=== PATIENT | female | born 1970 | race Caucasian/White ===

== ENCOUNTER 2021-06-04 10:21 | Emergency (ER) | payer OTHER ==
[2021-06-04 10:55] LABS: BASOPHIL 0.3 % (0-2); EOSINOPHIL 2.5 % (0-5); HCT 40.8 % (37.0-47.0); HGB 13.1 g/dl (12.5-16.0); LYMPHOCYTE 21.6 % (15-48); MCH 28.4 pg (25.0-31.0); MCHC 32.1 g/dL (32.0-36.0); MCV 88.5 fL (78.0-100.0); MONOCYTE 7.5 % (0-12); MPV 11.1 fL (6.0-9.5); NEUTROPHIL 67.8 % (41-80); NRBC 0; PLT 213 K/uL (150-400); RBC 4.61 M/uL (4.20-5.40); RDW 12.6 % (11.5-14.0); WBC 6.9 K/uL (4.0-10.5)
[2021-06-04 10:57] LABS: BILIRUBIN NEGATIVE (NEGATIVE); BLOOD NEGATIVE Ery/uL (NEGATIVE); CLARITY CLEAR (CLEAR); COLOR YELLOW (YELLOW); GLUCOSE (U) 3+ mg/dL (NORMAL); LEUKOCYTES NEGATIVE Leu/uL (NEGATIVE); NITRITE NEGATIVE (NEGATIVE); PROTEIN NEGATIVE (NEGATIVE); UROBILINOGEN 0.2 mg/dL (0.2-1.0); pH 6.5 (5.0-9.0)
[2021-06-04 11:15] LABS: BILIRUBIN - TOTAL 0.3 mg/dL (0.2-1.0); BUN/CREAT RATIO (CALC) 12.8 RATIO; CREATININE 0.47 mg/dL (0.51-0.95); GLOBULIN (CALCULATION) 3.7 g/dL; POTASSIUM 3.6 mmol/L (3.5-5.1); TOTAL PROTEIN 6.7 g/dL (6.4-8.2)
[2021-06-04] MEDS ORDERED: CEPHALEXIN500 MG PO (13:22)
== END 2021-06-04 14:19 | disposition home or self-care (01) ==
LOC: FER 10:21
PROVIDERS: Internal Medicine
DX: L03.116 Cellulitis of left lower limb (principal); J44.9 Chronic obstructive pulmonary disease, unspecified; E11.40 Type 2 diabetes mellitus with diabetic neuropathy, unspecified; Z87.891 Personal history of nicotine dependence; Z88.2 Allergy status to sulfonamides; Z88.5 Allergy status to narcotic agent; Z88.6 Allergy status to analgesic agent
CPT/HCPCS: 36415; 75635; 80053; 81003; 82009; 83690; 85025; 93971; J0696; J2270; Q9967